=== PATIENT | female | born 1995 | race Caucasian/White ===

== ENCOUNTER 2023-01-28 20:43 | Outpatient (CLI) | payer BC, MEDICAID ==
[~2023-01-28] VITALS: Ht 165.1 cm; Wt 127.7 kg
[~2023-01-28 20:43] MED LIST: EUTHYROX25 MCG PO; GLUCOPHAGE1000 MG PO; LEXAPRO20 MG PO; MACROBID 1100 MG/CAP PO; NATURAL IRON65 MG; PRENATAL TABLET PO; PROTONIX 40MG T40 MG PO; RHO D IMMUNE GLOBULIN IM
[2023-01-28 21:15] VITALS: TEMP 97.9
--- NOTE | 2023-01-28 21:15 | NUR ---
Pt here for possible SROM, placed on monitors, RN attempts to palpate pt ctx but is unable to feel the ctx. Pt reports they are in her lower pelvic area and she is able to breathe through them and does talk some during them as well. SVE obtained with pt tolerating well.
[2023-01-28 21:45] VITALS: BP 129/69; PULSE 94
[2023-01-28 22:15] VITALS: BP 122/74; PULSE 100
== END 2023-01-28 22:25 | disposition home or self-care (01) ==
LOC: LDRO 20:43 → LDR 21:01 → LDRO 22:25
DX: Z34.93 Encounter for supervision of normal pregnancy, unspecified, third trimester (principal); Z3A.35 35 weeks gestation of pregnancy
CPT/HCPCS: OP

== ENCOUNTER 2023-02-10 07:43 | Inpatient (IN) | payer MEDICAID ==
[2023-02-10] VITALS (12 sets, daily range): BP systolic 113–138; BP diastolic 60–85; PULSE 85–105; TEMP 98.3–98.7
[~2023-02-10] VITALS: Ht 167.7 cm; Wt 132.3 kg
[2023-02-10] MEDS ORDERED: miSOPROStol 25 MCG (1/4th of 100 MCG) TAB VG SCH (19:15)
[2023-02-10] MEDS ORDERED: miSOPROStol 25 MCG (1/4th of 100 MCG) TAB VG ONE (19:15)
[2023-02-10] MEDS ORDERED: Terbutaline 1 MG/ML 1 ML AMP SQ PRN (19:15)
[2023-02-10] MEDS ORDERED: LR & Oxytocin 500 ML IV SCH (19:15)
[2023-02-10] MEDS ORDERED: LR 1,000 ML IV SCH (19:15)
[2023-02-10] MEDS ORDERED: Penicillin G Potassium 5,000,000 UNITS in NS 100 ML IV ONE (19:30)
[2023-02-10 19:56] LABS: BASO % 0.4 % (0.0-2.0); EOS # 0.1 K/mm3 (0.0-0.7); EOS % 0.9 % (0.0-4.0); GRAN # 5.8 K/mm3 (1.4-6.5); GRAN % 73.4 % (42.2-75.2); HEMOGLOBIN 12.1 g/dl (12.5-16.0); LYMPH # 1.6 K/mm3 (1.2-3.4); LYMPH % 20.1 % (20.0-51.0); MEAN CELL VOLUME 84 fl (80.0-100.0); MEAN CORPUSCULAR HEMOGLOBIN 28 pg (27-31); MEAN CORPUSCULAR HGB CONC 34 g/dl (33.0-37.0); MEAN PLATELET VOLUME 12.7 fl (7.4-10.4); MONO # 0.4 K/mm3 (0.1-0.6); MONO % 4.7 % (1.7-9.3); PLATELET COUNT 204 K/mm3 (130-400); RED BLOOD COUNT 4.26 M/mm3 (4.10-5.30); REDCELL DISTRIBUTION WIDTH-CV 16.6 % (11.5-14.5)
[2023-02-10 19:57] LABS: HEMATOCRIT 35.6 % (37.0-47.0)
--- NOTE | 2023-02-10 21:11 | NUR ---
AMB TO L&D FOR INDUCTION OF LABOR R/T LARGE BABY. ORIENT TO ROOM DISCUSSED PLAN OF CARE. GOWN GIVEN. MONITOR PLACED.
--- NOTE | 2023-02-10 21:15 | NUR ---
IV OF 18 G STARTED TO LEFT HAND WITH 1 ATTEMPT. SALINE LOCK PLACED. LABS DRAWN. PATIENT TOLERATED WELL.
--- NOTE | 2023-02-10 21:33 | NUR ---
BABY IS DIFFICULT TO MONITOR MOVING WELL.
--- NOTE | 2023-02-10 21:50 | NUR ---
SVE DONE CYTOTEC PLACED PER PROTOCAL. PATIENT TOLERATED WELL. INSTRUCTED TO LAY ON LEFT SIDE EXPLAINED THE RESONING FOR POSITION. PATIENT STATES UNDERSTANDING.
--- NOTE | 2023-02-10 22:01 | NUR ---
PATIENT HAS OWN GLUCOMETER. BS IS 99.
--- NOTE | 2023-02-10 22:29 | NUR ---
INSTRUCTED PATIENT SHE COULD BE OFF OF MONITOR UNTIL 2229 TO AMB OR SIT ON BIRTHING BALL FOR COMFORT.
--- NOTE | 2023-02-10 23:19 | NUR ---
INSTRUCTED PATIENT SHE CAN BE OFF THE MONITOR FOR A SHORT TIME. PATIENT REQUEST BIRTHING BALL.
--- NOTE | 2023-02-10 23:24 | NUR ---
PATIENT UP TO BATHROOM VOIDS WITHOUT DIFF. RETURNS TO BED LL POSITION. STATES SHE IS FEELING SOME CONTRACTIONS VERY LIGHT.
[2023-02-10] MEDS ORDERED: Penicillin G Potassium 2,500,000 UNITS in NS 100 ML IV SCH (23:30)
[2023-02-11] VITALS (78 sets, daily range): BP systolic 90–174; BP diastolic 50–103; PULSE 75–116; TEMP 97.9–99.2
--- NOTE | 2023-02-11 01:02 | NUR ---
PATIENT SITTING ON BIRTHING BALL FOR COMFORT.
--- NOTE | 2023-02-11 01:08 | NUR ---
PATIENT RESTING ON HER BACK FOR CYTOTEC PLACEMENT. SLIGHT CHANGE NOTED. BS WAS 88 USING HER OWN GLUCOMATER.
--- NOTE | 2023-02-11 01:12 | NUR ---
PATIENT RESTING ON HER RIGHT SIDE BABY VERY ACTIVE. DIFFICULT TO MONITOR.
--- NOTE | 2023-02-11 05:13 | NUR ---
PATIENT RESTING WITH EYES CLOSED. TURND TO LEFT SIDE FOR COMFORT
--- NOTE | 2023-02-11 05:15 | NUR ---
PATIENT CONTINUES TO REST RESP EVEN ET UNLABORED.
--- NOTE | 2023-02-11 05:23 | NUR ---
PATIENT SLEEPING RESP EVEN ET UNLABORED. DOES NOT WAKE WHEN STAFF IN THE ROOM.SO SLEEPING ON THE FLOOR
--- NOTE | 2023-02-11 05:27 | NUR ---
PATIENT AWAKE AND ALERT. SITTING UP IN BED FILLING OUT PAPER WORK. STATES FEELING SOME PRESSURE
--- NOTE | 2023-02-11 05:32 | NUR ---
PATIENT UP TO BATHROOM VOIDS WITH OUT DIFF. LR STARTED TO SL. DARIA 5MIL UNIT STARTED.
--- NOTE | 2023-02-11 05:37 | NUR ---
PIT STARTED AT 2MU PER PUMP. PATIENT C/O CONTRACTIONS HURTING MORE NOW. INSTRUCTED ON BREATHING. AND RELAXING THROUGH THE CONTRACTIONS.
--- NOTE | 2023-02-11 06:03 | NUR ---
PATIENT BS 89 PER HER GLUCOMIDER. STATES SHE IS FEELING HUNGERY.
--- NOTE | 2023-02-11 06:10 | NUR ---
PATIENT UP TO BATHROOM VOIDS WITHOUT DIFF. RETURNS TO BED FAMILY AT [facility]
--- NOTE | 2023-02-11 06:34 | NUR ---
IV site to left hand appears red and blanched. Attempt to pull back for blood return. No blood return noted, flushes with ease, patient reports that she can taste the normal saline when flushed. Describes as "tastes like nail dutch remover on my tongue."
--- NOTE | 2023-02-11 07:15 | NUR ---
Note broken tracing, much difficulty repositioning ultrasound effectively. Note intermittently US picking up maternal heart rate. Note much difficulty tracing contractions while patient lying on side. Denies feeling much uterine activity. Trouble shooting toco, but no results.
--- NOTE | 2023-02-11 07:30 | NUR ---
Patient reports she did 1 hour GTT twice in , but was unable to complete 3 hour GTT, so has just been checking her blood sugar regularly throughout .
--- NOTE | 2023-02-11 07:40 | NUR ---
Patient reports she was a transfer of care from [facility] in around 30 weeks gestation.
--- NOTE | 2023-02-11 08:38 | NUR ---
here for evaluation. Discusses with patient AROM, placing internal monitors: IUPC and FSE. Patient verbalizes understanding, agreeable to plan of care.
--- NOTE | 2023-02-11 08:44 | NUR ---
AROM by . Possible light [facility], will continue to monitor. IUPC, FSE placed by . SVE /.
--- NOTE | 2023-02-11 09:10 | NUR ---
Blood sugar 94 @ this time, as taken with own glucometer per Dr.Weber boucher.
--- NOTE | 2023-02-11 10:26 | NUR ---
Requests anesthesia consult. LR bolus begun. Susan Henderson CRNA, in-house, notified.
--- NOTE | 2023-02-11 10:27 | NUR ---
Susan Henderson CRNA, in to speak with patient.
--- NOTE | 2023-02-11 10:32 | NUR ---
Rates pain of contractions "7" of 10 @ this time.
[2023-02-11] MEDS ORDERED: ROPivacaine PF 0.2% 200 ML IV ONE (10:35)
--- NOTE | 2023-02-11 10:35 | NUR ---
Sitting upright at side of bed for epidural placement. LR bolus in progress.
--- NOTE | 2023-02-11 11:00 | NUR ---
notified of patient mildly elevated BPs. No new orders received at si time.
--- NOTE | 2023-02-11 11:03 | NUR ---
Blood glucose 87 at this time as checked with patient own glucometer per Dr.Weber boucher.
--- NOTE | 2023-02-11 11:30 | NUR ---
Repositioned into throne's with right leg up on peanut ball. Note patient legs are numb, little control of lower extremeties.
[2023-02-11] MEDS ORDERED: Ondansetron 4 MG/2 ML VIAL IV PRN ×3 (12:30→22:30)
--- NOTE | 2023-02-11 12:35 | NUR ---
Repositioned to right lateral with peanut ball.
[2023-02-11] MEDS ORDERED: Lidocaine PF 2% (20 MG/ML) 5 ML VIAL ONE ×2 (12:53→21:20)
--- NOTE | 2023-02-11 12:57 | NUR ---
Susan Henderson CRNA, in to trouble shoot epidural, administer bolus dose, as noted, patient c/o persistent pubic bone pain unrelated to contractions despite position change.
--- NOTE | 2023-02-11 13:15 | NUR ---
Blood glucose 81 @ this time, as checked with patient own glucometer.
[2023-02-11] MEDS ORDERED: fentaNYL 50 MCG/ML 2 ML VIAL ONE (13:27)
[2023-02-11] MEDS ORDERED: diphenhydrAMINE 25 MG CAP PO PRN (13:30)
[2023-02-11] MEDS ORDERED: diphenhydrAMINE 50 MG/ML 1 ML VIAL IV PRN (13:30)
[2023-02-11] MEDS ORDERED: Promethazine 25 MG/ML 1 ML VIAL IV PRN (13:30)
[2023-02-11] MEDS ORDERED: Naloxone 0.4 MG/ML VIAL IV PRN ×2 (13:30→22:30)
[2023-02-11] MEDS ORDERED: ePHEDrine 50 MG/10 ML VIAL IV PRN (13:30)
--- NOTE | 2023-02-11 13:31 | NUR ---
Susan Henderson CRNA, here to administer bolus dose.
--- NOTE | 2023-02-11 13:32 | NUR ---
Benadryl 25 mg IVP administered at this time, as noted with repeat SVE, cervix palpates edematous. Suspect from patient bearing down with pelvic pain discomfort. Patient also c/o persistent nausea with discomfort, despite Zofran administration prior. Phenergan 12.5 mg IVP administered. Will continue to monitor.
--- NOTE | 2023-02-11 13:38 | NUR ---
Repositioned right lateral with left leg up in stirrup.
--- NOTE | 2023-02-11 14:15 | NUR ---
Attempt to reposition patient. Patient refuses to move at this time. States she is just now comfortable. Note fetus was previously intolerant of patient left side, so will allow patient to remain in right lateral for awhile longer.
--- NOTE | 2023-02-11 14:48 | NUR ---
Repositioned high quiroga's with wedge to right. Patient reports the pelvic pain is back, and pretty constant. Patient family reports she has pushed her PCEA button twice in last 30 minutes. Susan Henderson CRNA, in-house, notified.
--- NOTE | 2023-02-11 15:00 | NUR ---
Blood glucose 93, as checked with patient own glucometer at this time.
[2023-02-11 15:27] LABS: COLLECTION METHOD CATHETER
--- NOTE | 2023-02-11 15:35 | NUR ---
Repositioned right lateral with peanut ball.
[2023-02-11 15:36] LABS: MUCOUS Present (NOT PRESENT); SQUAMOUS EPITHELIAL None Seen /hpf (0-10); URINE APPEARANCE Clear (CLEAR/HAZY); URINE BACTERIA None Seen /hpf (NONE SEEN); URINE COLOR Yellow (YELLOW); URINE GLUCOSE Negative (NEGATIVE); URINE PROTEIN(semi-quant) 1+ (NEGATIVE); URINE RBC >50 /hpf (0-2)
[2023-02-11 15:37] LABS: URINE BLOOD 2+ (NEGATIVE); URINE KETONE 1+ (NEGATIVE); URINE NITRATE Negative (NEGATIVE); URINE UROBILINOGEN 0.2 E.U/dL (0.2-1.0)
--- NOTE | 2023-02-11 15:45 | NUR ---
FSE replaced by this expert medical writer at this time. Positioned back in right lateral with peanut ball following. Note repeat SVE reveals cervical change, however, significant amount of caput noted.
[2023-02-11 15:48] LABS: ALBUMIN 2.7 gm/dL (3.5-5.0); BILIRUBIN,TOTAL 0.3 mg/dL (0.2-1.2); CALCIUM 9.5 mg/dL (8.4-10.2); CREATININE, serum 0.61 mg/dL (0.57-1.11); POTASSIUM 4.4 mmol/L (3.5-4.5); TOTAL PROTEIN 6.7 gm/dL (6.2-8.1)
--- NOTE | 2023-02-11 16:33 | NUR ---
here for evaluation. Repositioned supine for repeat SVE. Patient requests to have epidural replaced at this time. Susan Henderson CRNA, here.
--- NOTE | 2023-02-11 16:40 | NUR ---
Positioned to sitting upright at side of bed in preparation for epidural replacement.
--- NOTE | 2023-02-11 17:03 | NUR ---
IUPC removed per Dr.Weber boucher, external toco applied with explanation to patient.
--- NOTE | 2023-02-11 17:28 | NUR ---
Repositioned wedged right. Rate of pitocin cut in half at this time, as noted, persistent minimal variability. Rate of pitocin cut to 12mU/min.
--- NOTE | 2023-02-11 17:49 | NUR ---
Repositioned to right lateral with left leg up in stirrup.
--- NOTE | 2023-02-11 18:15 | NUR ---
BG 100 @ this time, as checked by patient own glucometer.
--- NOTE | 2023-02-11 18:15 | NUR ---
Repositioned left lateral with peanut ball.
[2023-02-11] MEDS ORDERED: traZODone 50 MG TAB PO PRN (21:00)
[2023-02-11] MEDS ORDERED: Chloroprocaine PF 3% (30 MG/ML) 20 ML VIAL ONE (22:06)
[2023-02-11] MEDS ORDERED: oxyCODONE 5 MG TAB PO PRN (22:30)
[2023-02-11] MEDS ORDERED: Loratadine 10 MG TAB PO PRN (22:30)
[2023-02-11] MEDS ORDERED: Measles/Mumps/Rubella Virus Vaccine Live w Diluent 0.5 ML VIAL SQ SCH (22:30)
[2023-02-11] MEDS ORDERED: Magnes Hydrox (MOM) 80 MG/ML 30 ML CUP PO PRN (22:30)
[2023-02-11] MEDS ORDERED: Acetaminophen 500 MG TAB PO PRN (22:30)
[2023-02-11] MEDS ORDERED: LR 1,000 ML IV PRN (22:30)
[2023-02-11] MEDS ORDERED: Tranexamic Acid 1,000 MG/10 ML VIAL ONE (22:43)
[2023-02-11] MEDS ORDERED: Methylergonovine 0.2 MG/ML 1 ML AMPUL ONE (22:59)
[2023-02-11] MEDS ORDERED: Ondansetron 4 MG/2 ML VIAL ONE (22:59)
[2023-02-11] MEDS ORDERED: Carboprost 250 MCG/ML AMP IM ONE (22:59)
[2023-02-11] MEDS ORDERED: dexAMETHasone 10 MG/ML VIAL ONE (22:59)
[2023-02-11] MEDS ORDERED: LR 1,000 ML IV ONE (22:59)
[2023-02-11] MEDS ORDERED: Oxytocin 10 UNITS/ML VIAL ONE (22:59)
[2023-02-11] MEDS ORDERED: Phenylephrine 10 MG/ML VIAL ONE (22:59)
[2023-02-12] VITALS: BP 138/75; PULSE 86
[2023-02-12] MEDS ORDERED: PERCOCET 325 MG1 TA2 PO (01:29)
[2023-02-12] MEDS ORDERED: MOTRIN 800800 MG/TAB PO (01:29)
[2023-02-12] MEDS ORDERED: Ibuprofen 800 MG TAB PO SCH (04:22)
[2023-02-12 07:30] VITALS: BP 119/62; PULSE 97; TEMP 98.8
[2023-02-12] MEDS ORDERED: Sennosides/Docusate 8.6-50 MG TAB PO SCH (08:00)
[2023-02-12] MEDS ORDERED: Escitalopram 10 MG TAB PO SCH (09:00)
[2023-02-12] MEDS ORDERED: Rho(D) Imm Globulin 1,500 UNITS (300 MCG)/2 ML SYRINGE IV\\IM SCH (09:45)
--- NOTE | 2023-02-12 10:02 | NUR ---
Initial visit; Parents thanked [employer] Member for offering congratulations and God's blessings for the of their son. [employer] Member thanked family for choosing our hospital.
[2023-02-12 12:30] VITALS: BP 136/74; PULSE 84; TEMP 97.9
[2023-02-12 17:00] VITALS: BP 138/70; PULSE 80; TEMP 98
[2023-02-12 19:45] VITALS: BP 127/62; PULSE 91; TEMP 97.9
[2023-02-13 08:00] VITALS: BP 129/79; PULSE 87; TEMP 97.2
--- NOTE | 2023-02-13 12:00 | NUR ---
PARENTS TO NSY, EDUCATED ON CRM, ISOLETTE, IVF, INT, AND ANTIBIOTICS. VERBALIZE UNDERSTANDING QUESTIONS INVITEDAND ANSWERED.
[2023-02-13 16:39] VITALS: BP 134/70; PULSE 99; TEMP 98
[2023-02-13 20:30] VITALS: BP 117/67; PULSE 100; TEMP 97.6
[2023-02-14 09:45] VITALS: BP 134/70; PULSE 88; TEMP 98
[2023-02-14 16:30] VITALS: BP 142/74; PULSE 100; TEMP 98.3
[2023-02-14 18:52] VITALS: BP 1220/74; PULSE 92; TEMP 99.1
--- NOTE | 2023-02-14 21:41 | NUR ---
DISCHARGE INSTRUCTIONS, EDUCATION, APPOINTMENTS, MEDICATIONS, AND SUMMARY REVIEWED WITH PATIENT. DISCUSSED POC AND BOARDER STATUS. PT AND FATHER'S QUESTIONS ASKED AND ANSWERED. INFANT FOOT PRINT SHEET SIGNED UNDER BOARDER STATUS AND PLACED ON 'S CHART. DISCHARGED SUMMARY SIGNED BY PT AND WITNESS BY THIS RN. MOTHER VERBALIZES UNDERSTANDING AND REPORTS NO NEW QUESTIONS AT THIS TIME.
== END 2023-02-14 21:46 | disposition home or self-care (01) | DRG 788 ==
LOC: OB → LDR 18:31 → OB 02-12 02:12
PROVIDERS: ADMIT Obstetrics & Gynecology
PROC: 10D00Z1 Extraction of Products of Conception, Low, Open Approach (ICD-10-PCS; principal; 2023-02-11)
DX: O24.425 Gestational diabetes mellitus in childbirth, controlled by oral hypoglycemic drugs (principal); Z3A.37 37 weeks gestation of pregnancy; Z37.0 Single live birth; O99.284 Endocrine, nutritional and metabolic diseases complicating childbirth; E03.9 Hypothyroidism, unspecified; O99.344 Other mental disorders complicating childbirth; F41.9 Anxiety disorder, unspecified; O36.63X0 Maternal care for excessive fetal growth, third trimester, not applicable or unspecified; O99.214 Obesity complicating childbirth; O99.02 Anemia complicating childbirth; D64.9 Anemia, unspecified; O99.824 Streptococcus B carrier state complicating childbirth; K21.9 Gastro-esophageal reflux disease without esophagitis; O99.62 Diseases of the digestive system complicating childbirth; Z86.16 Personal history of COVID-19; Z67.11 Type A blood, Rh negative; Z90.89 Acquired absence of other organs; O75.89 Other specified complications of labor and delivery; O77.0 Labor and delivery complicated by meconium in amniotic fluid
CPT/HCPCS: J0690; J1100; J1200; J2210; J2370; J2401; J2405; J2540; J2550; J2590; J2791; J2795; J3010; J7120

== ENCOUNTER 2023-11-05 20:03 | Observation (INO) | payer OTHER ==
[~2023-11-05] VITALS: Ht 167.6 cm; Wt 128.0 kg
[~2023-11-05 20:03] MED LIST changes: +MOTRIN 800800 MG/TAB PO; +PERCOCET 325 MG1 TA2 PO
[2023-11-05] MEDS ORDERED: Morphine 4 MG/ML VIAL IV PRN (21:45)
[2023-11-05] MEDS ORDERED: Ondansetron 4 MG/2 ML VIAL IV PRN (21:45)
[2023-11-05] MEDS ORDERED: LR 1,000 ML IV SCH (21:45)
--- NOTE | 2023-11-05 23:14 | NUR ---
PT ARRIVED TO SURGICAL UNIT BY BED VIA EMS. LR INFUSING. PT AXOX4, REPORTS NO PAIN OR NASUEA. VITALS WNL WITH SLIGHTLY ELEVATED BP. NOTIFIED ON PT ARRIVAL. PT MOVED TO BED AND ORIENTED TO UNIT. CALL LIGHT IN REACH, PLAN OF CARE ONGOING.
[2023-11-05 23:15] VITALS: BP 143/91; PULSE 76; TEMP 98.1
[2023-11-05 23:49] VITALS: BP 143/91
[2023-11-06] VITALS (10 sets, daily range): BP systolic 103–145; BP diastolic 54–79; PULSE 57–73; TEMP 97.6–98.2
--- NOTE | 2023-11-06 08:01 | NUR ---
RECEIVED REPORT JER RODRIGUEZ
[2023-11-06] MEDS ORDERED: EPIPEN 2-PAK1 MG/ML IM (08:48)
[2023-11-06] MEDS ORDERED: PROBIOTIC BLEN1 EACH PO (08:49)
--- NOTE | 2023-11-06 10:43 | NUR ---
Social Work student met with patient to discuss discharge planning. Patient lives in [place] with her Khari (ph#:[phone]) who was at bedside. Patient sees for Primary Care and gets her medications from [facility] with no difficulties affording them. Patient does not have a DPOA-HC and is not interested in making one at this time. Patient is independent with ADLS and does not use DME. Patient is able to transport herself to and from appointments and has no concerns with going home at time of discharge. Discharge Plan: Home
--- NOTE | 2023-11-06 11:30 | NUR ---
PT RESTING IN BED WITH MINIMAL PAIN. SEE PAIN ASSESSMENT FOR FURTHER DETAIL. PT INDEPENDENT IN ROOM. ALL NEEDS MET AT THIS TIME. CALL LIGHT WITHIN REACH.
[2023-11-06] MEDS ORDERED: Succinylcholine PF 100 MG/5 ML SYRINGE/POLY AMP IV ONE (11:31)
[2023-11-06] MEDS ORDERED: Rocuronium 50 MG/5 ML Multi-Dose VIAL ONE (11:31)
[2023-11-06] MEDS ORDERED: Lidocaine PF 2% (20 MG/ML) 5 ML VIAL ONE (11:33)
[2023-11-06] MEDS ORDERED: fentaNYL 50 MCG/ML 2 ML VIAL ONE ×2 (11:33→12:50)
[2023-11-06] MEDS ORDERED: NS 20 ML IV ONE (11:37)
[2023-11-06] MEDS ORDERED: dexAMETHasone 10 MG/ML VIAL ONE (12:18)
[2023-11-06] MEDS ORDERED: Ondansetron 4 MG/2 ML VIAL ONE (12:18)
[2023-11-06] MEDS ORDERED: Ketorolac 30 MG/ML VIAL ONE (12:32)
[2023-11-06] MEDS ORDERED: hydrALAZINE 20 MG/ML 1 ML VIAL IV PRN (12:45)
[2023-11-06] MEDS ORDERED: Ondansetron 4 MG/2 ML VIAL IV PRN (12:45)
[2023-11-06] MEDS ORDERED: fentaNYL 50 MCG/ML 2 ML VIAL IV PRN (12:45)
[2023-11-06] MEDS ORDERED: Meperidine 50 MG/ML 1 ML VIAL IV PRN (12:45)
[2023-11-06] MEDS ORDERED: HYDROmorphone 2 MG/1 ML VIAL IV PRN (12:45)
[2023-11-06] MEDS ORDERED: Acetaminophen 325 MG TAB PO PRN (15:15)
[2023-11-06] MEDS ORDERED: Ibuprofen 600 MG TAB PO PRN (16:45)
--- NOTE | 2023-11-06 17:30 | NUR ---
Pt. ready for discharge. Pt. is A&OX3, assessment complete. INT to rt. forearm discontinues. Discharge paperwork given to the pt. Pt. voices understanding. Pt. escorted out by wheelchair.
== END 2023-11-06 17:30 | disposition home or self-care (01) ==
LOC: SURG 20:03
PROVIDERS: ADMIT Surgery
DX: K80.12 Calculus of gallbladder with acute and chronic cholecystitis without obstruction (principal)
CPT/HCPCS: G0378; G0379; J0330; J0690; J1100; J1885; J2405; J2704; J3010; J7120